=== PATIENT | female | born 1960 | race African-American/Black ===

== ENCOUNTER 2016-12-06 20:56 | Emergency (ER) | payer BC, MEDICARE, MEDICAID ==
[~2016-12-06] VITALS: Ht 170.2 cm; Wt 81.6 kg
[2016-12-06] MEDS ORDERED: GABAPENTIN100 MG ORAL (21:05)
[2016-12-06] MEDS ORDERED: PRILOSEC OTC20 MG ORAL (21:06)
[2016-12-06] MEDS ORDERED: SOMA350 MG PO (21:06)
[2016-12-06] MEDS ORDERED: CYMBALTA30 MG ORAL (21:06)
[2016-12-06] MEDS ORDERED: DiphenhydrAMINE 50mg/ml Inj IVP ONE (21:15)
[2016-12-06] MEDS ORDERED: Metoclopramide 10mg/2ml Inj IVP ONE (21:15)
[2016-12-06] MEDS ORDERED: Morphine Sulfate 4mg/ml Inj IVP ONE (21:15)
[2016-12-06] MEDS ORDERED: Famotidine 20 MG/ 2ML VIAL IVP ONE (21:15)
--- NOTE | 2016-12-06 21:18 | Emergency Room Report ---
History of Present Illness General Chief Complaint: Abdominal Pain Source: Patient Present Illness HPI Patient presents with one day of epigastric pain and vomiting. She says she has a history of gastritis. It feels like that type of pain. It's 10/10 and burning. Doesn't radiate towards her back. She denies any fevers, chills, diarrhea, dysuria, cough, chest pain. She went to [facility] and was waiting to be seen and then decided to come here. No vomit blood/coffee grounds. No melena. Patient has chronic back problems with herniated discs at L5 6. She walks with a limp. She is on gabapentin and soma. Allergies: Coded Allergies: No Known Allergies (Verified Allergy, Mild, 04/03/10) Patient History Past Medical History: see triage record Social History: Reports: smoking Social History Narrative With family member Now: No : 2 Para: 1 Reviewed Nursing Documentation: PMH: Agreed, PSxH: Agreed Nursing Documentation-PMH Hx Hypertension: Yes Hx Gastrointestinal Problems: Yes - Acid reflux Review of Systems All Other Systems: negative except mentioned in HPI Physical Exam Vital Signs Date Time Temp Pulse Resp B/P Pulse Ox O2 Delivery O2 Flow Rate FiO2 12/06/16 21:02 98.2 114 20 142/81 96 Room Air Sp02 EP Interpretation: reviewed, normal General Appearance: well appearing, no apparent distress, GCS 15 Head: normocephalic Eyes: bilateral eye normal inspection ENT: moist mucus membranes Neck: supple Respiratory: lungs clear, normal breath sounds Cardiovascular #1: regular rate, rhythm Cardiovascular #2: 2+ radial (R) Gastrointestinal: normal inspection, normal bowel sounds, no mass, non- distended, no guarding, no rebound, tenderness - Epigastric, other - vomiting guaiac - material Musculoskeletal: back normal, gait/station normal, normal range of motion Neurologic: alert, oriented x3, other - Walks with a limp, grossly normal Psychiatric: mood/affect normal Skin: normal inspection, warm/dry Medical Decision Making Diagnostic Impression: Primary Impression: Gastritis Qualified Codes: K29.00 - Acute gastritis without bleeding Additional Impressions: Polycythemia Renal insufficiency ER Course Patient presents with abdominal pain with vomiting. She says it's or gastritis. Other issues on the differential includes pancreatitis, peptic ulcer disease, GERD and gastroenteritis. She be evaluated EKG, x-rays and labs. To be treated IV hydration, Reglan, Benadryl, Pepcid and morphine. Labs with elevated H/H and renal function. Abd x-ray without pathology (aside from spine). Improved with treatment. No more vomiting. Pain controlled. Expect renal function to improve with hydration. Patient stable for outpatient observation and treatment. Labs Test 12/06/16 21:16 12/06/16 22:30 Urine Color Yellow Urine Appearance Slightly cloudy Urine pH 6 (4.5-8.0) Urine Specific Success 1.015 (1.005-1.035) Urine Protein 4+ (NEGATIVE) Urine Glucose (UA) Negative (NEGATIVE) Urine Ketones 2+ (NEGATIVE) Urine Occult Blood 2+ (NEGATIVE) Urine Nitrite Negative (NEGATIVE) Urine Bilirubin Negative (NEGATIVE) Urine Urobilinogen Normal MG/DL (0.0-1.0) Urine Leukocyte Esterase Negative (NEGATIVE) Urine RBC 2-4 /HPF (0 - 2) Urine WBC 0-2 /HPF (0 - 2) Urine Squamous Epithelial Cells Many /LPF (NONE/OCC) Urine Bacteria Moderate /HPF (NONE) White Blood Count 9.6 K/UL (4.8-10.8) Red Blood Count 5.34 M/UL (4.20-5.40) Hemoglobin 16.3 G/DL (12.0-16.0) Hematocrit 50.5 % (37.0-47.0) Mean Corpuscular Volume 95 FL (80-99) Mean Corpuscular Hemoglobin 30.4 PG (27.0-31.0) Mean Corpuscular Hemoglobin Concent 32.2 G/DL (32.0-36.0) Red Cell Distribution Width 12.6 % (11.6-14.8) Platelet Count 224 K/UL (150-450) Mean Platelet Volume 8.9 FL (6.5-10.1) Neutrophils (%) (Auto) 74.4 % (45.0-75.0) Lymphocytes (%) (Auto) 13.6 % (20.0-45.0) Monocytes (%) (Auto) 10.5 % (1.0-10.0) Eosinophils (%) (Auto) 0.2 % (0.0-3.0) Basophils (%) (Auto) 1.3 % (0.0-2.0) Sodium Level 134 mEQ/L (135-145) Potassium Level 5.2 mEQ/L (3.4-4.9) Chloride Level 95 mEQ/L (98-107) Carbon Dioxide Level 22 mEQ/L (20-30) Anion Gap 17 (5-15) Blood Urea Nitrogen 21 mg/dL (7-23) Creatinine 1.5 mg/dL (0.5-0.9) Estimat Glomerular Filtration Rate 43.5 mL/min (>60) Glucose Level 125 mg/dL (74-106) Calcium Level 10.4 mg/dL (8.6-10.2) Total Bilirubin 0.5 mg/dL (0.0-1.2) Aspartate Amino Transf (AST/SGOT) 30 U/L (5-40) Alanine Aminotransferase (ALT/SGPT) 14 U/L (3-33) Alkaline Phosphatase 87 U/L (35-104) Total Protein 8.9 g/dL (6.6-8.7) Albumin 4.7 g/dL (3.5-5.2) Globulin 4.2 g/dL Albumin/Globulin Ratio 1.1 (1.0-2.7) Lipase 40 U/L (< 60) EKG Diagnostic Results Rate: normal Rhythm: NSR ST Segments: no acute changes - LAE, LVH Rhythm Strip Diag. Results EP Interpretation: yes Rhythm: NSR, no PVC's, no ectopy Other X-Ray Diagnostic Results Other X-Ray Diagnostic Results : X-Ray ordered: abd # of Views/Limited Vs Complete: 1 View Indication: Pain EP Interpretation: Yes Interpretation: nonspecific bowel gas, no sbo, other - no masses, back chronic changes Impression: No acute disease Interpreting ER Provider: signed Terry Yousif MD Last Vital Signs Date Time Temp Pulse Resp B/P Pulse Ox O2 Delivery O2 Flow Rate FiO2 12/07/16 02:50 98.2 84 12 136/93 98 Room Air Status: improved Disposition: HOME, SELF-CARE Condition: Improved Scripts Acetaminophen With Codeine (T#3) (TYLENOL #3 TAB*) Y Tab 1 TAB ORAL Q8H Y for For Pain, #6 TAB Prov: Terry Yousif M.D. 12/07/16 Acetaminophen (Tylenol) 325 Mg Tablet 650 MG ORAL Q6H Y for Prn Pain/Headache/Temp > 101, #30 TAB 0 Refills Prov: Terry Yousif M.D. 12/07/16 Ondansetron Odt* (ZOFRAN ODT*) 4 Mg Tab.rapdis 4 MG ORAL Q8H Y for Nausea & Vomiting, #6 TAB 1 Refill Prov: Terry Yousif M.D. 12/07/16 Terry Yousif M.D. Dec 06, 2016 21:18
[2016-12-06 21:48] LABS: APPEARANCE,URINE SLIGHTLY CLOUDY; KETONES,URINE 2+ (NEGATIVE); LEUKOCYTE ESTERASE ,URINE NEGATIVE (NEGATIVE); NITRITE,URINE NEGATIVE (NEGATIVE); PH,URINE 6 (4.5-8.0); PROTEIN,URINE 4+ (NEGATIVE); UROBILINOGEN,URINE NORMAL MG/DL (0.0-1.0)
[2016-12-06 21:50] VITALS: BP 179/113
[2016-12-06 21:56] LABS: BACTERIA,URINE MODERATE /HPF; SQUAMOUS EPITHELIAL CELL,UR MANY /LPF (NONE/OCC); WBC,URINE 0-2 /HPF (0 - 2)
[2016-12-06 23:07] LABS: BASOPHILS % (AUTO) 1.3 % (0.0-2.0); EOSINOPHILS % (AUTO) 0.2 % (0.0-3.0); LYMPHOCYTES % (AUTO) 13.6 % (20.0-45.0); MEAN CORPUSCULAR HEMOGLOBIN 30.4 PG (27.0-31.0); MEAN CORPUSCULAR HGB CONC 32.2 G/DL (32.0-36.0); MEAN CORPUSCULAR VOLUME 95 FL (80-99); MEAN PLATELET VOLUME 8.9 FL (6.5-10.1); MONOCYTES % (AUTO) 10.5 % (1.0-10.0); NEUTROPHILS % (AUTO) 74.4 % (45.0-75.0); PLATELET COUNT 224 K/UL (150-450); RED BLOOD COUNT 5.34 M/UL (4.20-5.40); RED CELL DISTRIBUTION WIDTH 12.6 % (11.6-14.8); WHITE BLOOD COUNT 9.6 K/UL (4.8-10.8)
[2016-12-06 23:14] LABS: ALBUMIN/GLOBULIN RATIO 1.1 (1.0-2.7); CREATININE 1.5 mg/dL (0.5-0.9); GLOMERULAR FILTRATION RATE 43.5 mL/min (>60); POTASSIUM 5.2 mEQ/L (3.4-4.9); TOTAL PROTEIN 8.9 g/dL (6.6-8.7)
[2016-12-06 23:18] VITALS: BP 176/117
[2016-12-06 23:31] LABS: CALCIUM 10.4 mg/dL (8.6-10.2)
[2016-12-07] MEDS ORDERED: TYLENOL325 MG ORAL (01:56)
[2016-12-07] MEDS ORDERED: ZOFRAN ODT4 MG ORAL (01:56)
[2016-12-07] MEDS ORDERED: ACETAMINOPHEN-1 EAC1 ORAL (01:56)
[2016-12-07 02:45] VITALS: BP 136/93
[2016-12-07 02:50] VITALS: BP 136/93
--- NOTE | 2016-12-07 09:15 | Diagnostic Imaging Report ---
Indications: Abdominal pain. Technique: AP view of the abdomen Findings: Comparison: 06/30/2008. Bowel gas pattern is unremarkable. No abnormal calcific or soft tissue densities are demonstrated. Asymmetric hypoplasia of 12th ribs, there are degrees of disc space narrowing with marginal osteophyte formation in lower lumbar, lower thoracic spine, mild dextroscoliosis of lumbar spine unchanged.. IMPRESSION: No evidence of acute abdominopelvic disease, unchanged Degenerative spondylosis Hypoplastic 12th ribs, developmental variant.
[2016-12-08] MEDS ORDERED: ZESTRIL10 M1 ORAL (05:49)
[2016-12-08] MEDS ORDERED: PEPCID20 MG ORAL (07:16)
--- NOTE | 2016-12-08 10:37 | Cardiology Report ---
APPROVED REPORT EKG Measurement Heart [id number] Normal sinus rhythm Biatrial enlargement Left ventricular hypertrophy Cannot rule out Septal infarct, age undetermined Abnormal ECG
== END 2016-12-07 03:06 | disposition home or self-care (01) ==
LOC: EMR 21:15
DX: K29.00 Acute gastritis without bleeding (principal); D75.1 Secondary polycythemia; N28.9 Disorder of kidney and ureter, unspecified; F17.200 Nicotine dependence, unspecified, uncomplicated; I10 Essential (primary) hypertension; M47.9 Spondylosis, unspecified
CPT/HCPCS: 36415; 74000; 80053; 81003; 83690; 85025; 87086; 87181; 93005; 96360; 96366; 99284; J1200; J2270; J2765; S0028; 96361; 96375

== ENCOUNTER 2016-12-08 05:28 | Emergency (ER) | payer BC, MEDICARE, MEDICAID ==
[~2016-12-08] VITALS: Ht 170.2 cm; Wt 81.6 kg
[~2016-12-08 05:28] MED LIST: ACETAMINOPHEN-1 EAC1 ORAL; CYMBALTA30 MG ORAL; GABAPENTIN100 MG ORAL; PRILOSEC OTC20 MG ORAL; SOMA350 MG PO; TYLENOL325 MG ORAL; ZOFRAN ODT4 MG ORAL
[2016-12-08 05:35] VITALS: BP 183/106
[2016-12-08] MEDS ORDERED: oxyCODONE HCL/Acetaminophen 5/325mg ORAL ONE (05:45)
--- NOTE | 2016-12-08 05:48 | Emergency Room Report ---
History of Present Illness General Chief Complaint: Abdominal Pain Source: Patient Present Illness HPI The patient returns to emergency department. She was seen here yesterday. At that time had persistent vomiting and abdominal pain. She was treated was able to keep things down and pain was controlled. She's not been vomiting more. She was unable to fill the prescription that I gave her. She states the pain is severe epigastric. W/U yesterday was remarkable for some renal insufficiency. This was treated with hydration. Also, she has polycythemia which has been present for years. The second problem is that she's not taking her blood pressure this morning. Blood pressure is high. She has chronic back pain. This is unchanged. Allergies: Coded Allergies: No Known Allergies (Verified Allergy, Mild, 04/03/10) Patient History Past Medical History: see triage record Social History: Reports: smoking Social History Narrative with sig other Reviewed Nursing Documentation: PMH: Agreed, PSxH: Agreed Nursing Documentation-PMH Hx Hypertension: Yes Hx Gastrointestinal Problems: Yes - Acid reflux Physical Exam Vital Signs Date Time Temp Pulse Resp B/P Pulse Ox O2 Delivery O2 Flow Rate FiO2 12/08/16 05:31 98.2 101 18 183/136 96 Room Air Sp02 EP Interpretation: reviewed, normal General Appearance: well appearing, no apparent distress, GCS 15, non-toxic Head: normocephalic Eyes: bilateral eye PERRL, bilateral eye normal inspection ENT: moist mucus membranes - poor dentition Neck: supple Respiratory: lungs clear, normal breath sounds Cardiovascular #1: regular rate, rhythm Cardiovascular #2: 2+ radial (R) Gastrointestinal: normal inspection, normal bowel sounds, no mass, non- distended, no guarding, no rebound, tenderness - epigastric Musculoskeletal: back normal, gait/station normal, normal range of motion Neurologic: alert, oriented x3, grossly normal Psychiatric: depressed affect Skin: normal inspection, warm/dry Medical Decision Making Diagnostic Impression: Primary Impression: Epigastric pain Additional Impressions: Hypertension Qualified Codes: I10 - Essential (primary) hypertension Polycythemia ER Course Patient re-presents with epigastric pain. DDx: gastritis, gastroenteritis, PUD. Labs yesterday excluded pancreatitis. The pain is the same today. She is no longer vomiting. She will be given oral analgesics. She is agreeable to this as she is difficult to establish IV. Not toxic or tachycardic. Review of labs from yesterday. Chronic polycythemia. Some renal insufficiency (also chronic and fluctuates). Xray reviewed also - no acute process (spine changes). BP remains high. Given her BP med. BP still high. Clonidine given. C/O epigastric and esophageal burning. Given lido and mylanta. Initially, swallowing air and burping. Then calmed down. Discussed observation at home and filling the prescriptions I wrote yesterday. In addition, she does not have pepcid and this is prescribed. Improved. Patient stable for outpatient observation and treatment. See labs from yesterday's visit. Last Vital Signs Date Time Temp Pulse Resp B/P Pulse Ox O2 Delivery O2 Flow Rate FiO2 12/08/16 07:23 98.2 89 18 149/100 96 Room Air Status: improved Disposition: HOME, SELF-CARE Condition: Improved Scripts Famotidine (PEPCID) 20 Mg Tablet 20 MG ORAL DAILY, #20 TAB 1 Refill Prov: Terry Yousif M.D. 12/08/16 Terry Yousif M.D. Dec 08, 2016 05:48
[2016-12-08] MEDS ORDERED: ZESTRIL10 M1 ORAL (05:49)
[2016-12-08] MEDS ORDERED: Lisinopril 10mg tab ORAL ONE (06:00)
[2016-12-08] MEDS ORDERED: cloNIDine 0.2mg Tab ORAL ONE (06:30)
[2016-12-08] MEDS ORDERED: Lidocaine 2% Visc 15ml soln ORAL ONE (07:00)
[2016-12-08] MEDS ORDERED: Mylanta II UD 30ml ORAL ONE (07:00)
[2016-12-08] MEDS ORDERED: PEPCID20 MG ORAL (07:16)
[2016-12-08 07:20] VITALS: BP 149/100
[2016-12-08 07:23] VITALS: BP 149/100
== END 2016-12-08 07:33 | disposition home or self-care (01) ==
LOC: EMR 05:44
DX: R10.13 Epigastric pain (principal); I10 Essential (primary) hypertension; D75.1 Secondary polycythemia; K21.9 Gastro-esophageal reflux disease without esophagitis; F17.200 Nicotine dependence, unspecified, uncomplicated
CPT/HCPCS: 99283